=== PATIENT | female | born 2005 | race Caucasian/White ===

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

== ENCOUNTER 2024-03-03 11:15 | Outpatient (RCR) | payer BC, OTHER, SELFPAY ==
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
--- NOTE | 2024-02-27 10:10 | PT.OPPOC ---
Physical, Occupational & Speech Therapy At [facility] Current Diagnoses Other instability, right shoulder (02/27/24) Visit Care Team Role Provider Type Gilmar Prescott MD Family Provider Physician Primary Care Provider Specialty: Family Practice Address: [address] [place] [address], [id number] Email: [email or web address] Elmer Ortiz MD Attending Provider Non-Staff Referring Provider Specialty: Orthopedic Surgery Address: [address] [place] [address] , [place], [address] Email: Plan Of Care PT-OP-T Assessment and Plan Start: 02/26/24 18:01 Freq: Status: Active Protocol: Document 02/27/24 08:58 [facility] (Rec: 02/27/24 10:09 [facility] [id number]) Physical Therapy Assessment Rehab Potential Rehabilitation Potential Good Evaluation Complexity Number of Personal Factors/Comorbidities 3 or More Number of Body Systems Impaired 4 or More Clinical Presentation at Evaluation Unstable Impairments Impairments Activity Tolerance,Functional Activities,Functional Mobility ,Pain,Posture,ROM,Soft Tissue Mobility,Strength Other Concerns Barriers to Rehabilitation no MRI report, and clinic was called and asked for urgent send for pt's saturday appt Goals strength Pattern Drum Maker Goal (LTG) Pt will be indep w/HEP for strength and ROM for pre surgery preparation LTG Duration 05/01 Assessment Summary Assessment Pt presents w/pain in R shoulder 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 She is here for pre- PT for strength and ROM and plans to work on HEP on own until gets surgery. Per pt, her MRI showed Bankhart lesion, RC tearing, humeral fx and biceps tendonosis. She has limited overhead mobility and has been restricted re: lifting no greater than 5lbs per doctor. 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 She would benefit from skilled PT for appropriate HEP . Physical Therapy Plan Frequency and Duration Frequency of Treatment up to 5 visits Duration of treatment (weeks) 8 Plan of Care Start Date 02/27/24 Plan of Care End Date 05/01/24 Therapeutic Interventions Therapeutic Interventions Home Exercise Program,Joint Mobilizations,Manual Therapy, Neuromuscular Re-education, Self-Care/Home Management,Soft Tissue Mobilization,Taping, Therapeutic Activities, Therapeutic Exercises Modalities Cold Pack/Ice Massage,Electric Stimulation,Hot Packs, Infrared Therapy,Ultrasound Next Visit Focus/Plan Next Note Type Treatment Note Next Visit Plan review exercises; gentle manual to improve neutral scap position Plan of Care Dates Plan of Care Start Date 02/27/24 Plan of Care End Date 05/01/24 Electronically Signed by: Alma Harris, PT 02/27/24 1010 If you are in agreement with this Plan of Care, please return a signed and dated copy. I have reviewed this Plan of Care and certify that the skilled therapy services above are required to meet the patient?s needs. Physician Signature Date Printed Name and Credentials Clinical Instructor Signature Printed Name and Credentials
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
== END 2024-05-21 08:56 | disposition home or self-care (01) ==
LOC: PHYS 11:15
PROVIDERS: Family Provider Family Medicine; PCP Family Medicine; Referring Provider Orthopaedic Surgery; Visit Provider Orthopaedic Surgery
DX: M25.311 Other instability, right shoulder (principal)
CPT/HCPCS: 97110; 97140; 97163

== ENCOUNTER → 2024-04-20 12:12 | Outpatient (CLI) | payer BC, SELFPAY ==
[2024-04-20 13:03] LABS: Influenza A - CEPHEID Flu A NEGATIVE (NEGATIVE); Influenza B - CEPHEID Flu B NEGATIVE (NEGATIVE); Respiratory Syncytial Virus Negative (Negative)
[2024-04-20 15:46] LABS: COVID-19 CEPHEID 4-PLEX PCR POSITIVE (Negative)
== END ==
PROVIDERS: Family Provider Family Medicine; PCP Family Medicine; Visit Provider Physician Assistant
DX: R05.1 Acute cough (principal)
CPT/HCPCS: 0241U

== ENCOUNTER 2024-08-05 13:45 | Outpatient (RCR) | payer BC, OTHER, SELFPAY ==
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
== END 2024-08-18 08:57 | disposition home or self-care (01) ==
LOC: PHYS 13:45
PROVIDERS: Family Provider Family Medicine; PCP Family Medicine; Referring Provider Physician Assistant; Visit Provider Physician Assistant
DX: M25.511 Pain in right shoulder (principal)
CPT/HCPCS: 97110; 97140; 97161; 97535

== ENCOUNTER → 2024-11-12 14:15 | Outpatient (CLI) | payer BC, OTHER, SELFPAY ==
[2024-11-12 15:46] LABS: HCG Quantitative /Beta subunit < 2.39 mIU/mL
== END ==
PROVIDERS: Family Provider Family Medicine; PCP Family Medicine; Referring Provider Student in an Organized Health Care Education/Training Program; Visit Provider Student in an Organized Health Care Education/Training Program
DX: Z97.5 Presence of (intrauterine) contraceptive device (principal); N91.2 Amenorrhea, unspecified
CPT/HCPCS: 36415; 84702